=== PATIENT | male | born 1985 | race Hispanic/Latino ===

== ENCOUNTER 2021-08-19 13:48 | Emergency (ER) | payer SELFPAY ==
[2021-08-19] MEDS ORDERED: Dexamethasone 10 MG/ML VIAL ONE (15:51)
[2021-08-19] MEDS ORDERED: Cyclobenzaprine 10 MG TAB ONE (15:51)
[2021-08-19] MEDS ORDERED: Ketorolac Tromethamine 30 MG/ML VIAL ONE (15:51)
== END 2021-08-19 16:23 | disposition home or self-care (01) ==
LOC: ERS 13:48
DX: S39.012A Strain of muscle, fascia and tendon of lower back, initial encounter (principal); F17.210 Nicotine dependence, cigarettes, uncomplicated; X50.9XXA Other and unspecified overexertion or strenuous movements or postures, initial encounter
CPT/HCPCS: 96372; 99283; J1100; J1885